=== PATIENT | female | born 1970 | race Caucasian/White ===

== ENCOUNTER 2022-12-24 23:03 | Emergency (ER) | payer BC, SELFPAY ==
[2022-12-24 23:12] VITALS: BP 142/78; PULSE 74; RESP 16; TEMP 36.1; O2SAT 96
[2022-12-24] MEDS: Amoxicillin 500 MG CAP PO (23:21)
--- NOTE | 2022-12-24 23:21 | W.ED.GENAD ---
Discharge Plan Disposition Patient Disposition: Home Condition: Good Discharge Details Clinical Impression: Dental caries Primary Care Provider: Alicia,Local ED Provider: Viet Singh Home Meds and New Rx's Prescriptions: New amoxicillin 500 mg tablet 500 mg PO TID 7 Days Qty: 21 0RF Discharge Instructions Instructions: Dental Caries (ED) Additional Instructions: Please take 800 mg of ibuprofen every 6 hours and 1000 mg of Tylenol every 6 hours to help with the inflammation and pain. These are the maximum doses. Please take the antibiotic as directed to help with the infection in your tooth. Please use the dental list that we have provided to contact the dentist for prompt follow-up and evaluation for tooth removal. If you notice any worsening of your symptoms, or any new symptoms such as difficulty swallowing, difficulty breathing, vomiting, diarrhea, fever, chills, shortness of breath, chest pain, numbness, weakness, or fainting , please return immediately to the emergency department for reevaluation. Please follow up with your primary care provider as soon as possible for reassessment and reevaluation. As always, it was a pleasure participating in your medical care today. Medical Decision Making 52-year-old female with a past medical history of dental caries presents today for evaluation of right lower tooth dental pain. Patient states that symptoms began last 24 to 48 hours. She has had pain like this before which required antibiotics secondary to root infection. She denies fever chills or swelling. No difficulty swallowing. No other complaints at this time. Exam demonstrates well-appearing female, mild dental caries. No evidence of periapical abscess. No signs of airway compromise whatsoever. No swelling. Did offer dental block but patient has refused. We will give amoxicillin, and recommend continue Tylenol Motrin outpatient. Recommend close follow-up with dentist. Discussed red flags for which to return. I have extensively reviewed the treatment plan and discharge instructions with the patient. I have addressed all patient concerns at this time. The patient was made aware of what symptoms to monitor for that would warrant a return to the emergency department. Discussed the plan with the patient, they demonstrate verbal understanding and agreement with our assessment and plan at this time. The documentation in this chart was dictated using [employer] dictation software. Please excuse any dictation errors. HPI General Date/Time Provider Initiated Documentation: 12/24/22 23:07. HPI Narrative: 52-year-old female with a past medical history of dental caries presents today for evaluation of right lower tooth dental pain. Patient states that symptoms began last 24 to 48 hours. She has had pain like this before which required antibiotics secondary to root infection. She denies fever chills or swelling. No difficulty swallowing. No other complaints at this time. Related Data Home Medications Medication Instructions Recorded Confirmed amoxicillin 500 mg tablet 500 mg PO TID 7 days #21 tabs 12/24/22 Previous Rx's Medication Instructions Recorded amoxicillin 500 mg tablet 500 mg PO TID 7 days #21 tabs 12/24/22 General Stated Complaint: DentalOral CHAGO: 4 Review of Systems All systems reviewed & are unremarkable except as noted in HPI and below PFSH All Active Problems Dental caries (Acute) Social History Smoking/Tobacco Use Status: Never Smoking risk assessment performed?: Yes Substance use type: does not use Do you feel safe at home: Yes Do you feel safe in your relationship?: Yes Exam Narrative Exam Narrative: 1.Const: Well-nourished, Well-developed, appearing stated age 2.Eyes: PERRL, no conjunctival injection, and symmetrical lids. 3.ENT: Atraumatic external nose and ears. Moist MM. Neck: Symmetric, trachea midline, No thyromegaly. Occasional dental caries throughout. No evidence of periapical abscess or swelling. No evidence of Ludewig's angina. 4.CVS: +S1/S2, No murmurs or gallops. Peripheral pulses 2+ and equal in all extremities. Brisk capillary refill in all extremities. 5.RESP: Unlabored respiratory effort. Clear to auscultation bilaterally. No wheezes rales or rhonchi 6.GI: Soft, Nontender/Nondistended, No hepatosplenomegaly. No guarding or rebound. 7.MSK: Normocephalic/Atraumatic, Extremities w/o deformity or ttp No cyanosis or clubbing, Normal movement of all extremities 8.Skin: Warm, Dry. No rashes or lesions. 9.Neuro: centerless grinder II-XII grossly intact. Sensation grossly intact, no focal neurologic deficits. 10.Psych: (AAO) x3. Appropriate mood and affect Course Vital Signs Vital signs: Vital Signs Temperature 36.1 C L 12/24/22 23:12 Pulse 74 12/24/22 23:12 Respiratory Rate 16 12/24/22 23:12 Blood Pressure 142/78 H 12/24/22 23:12 Pulse Oximetry 96 12/24/22 23:12 Temperature 36.1 C L 12/24/22 23:12 Temperature Source Tympanic 12/24/22 23:12 Pulse 74 12/24/22 23:12 Respiratory Rate 16 12/24/22 23:12 Respiratory Effort Normal, Non-Labored 12/24/22 23:14 Blood Pressure 142/78 H 12/24/22 23:12 Blood Pressure Position Sitting 12/24/22 23:12 Pulse Oximetry 96 12/24/22 23:12 Oxygen Delivery Method Room Air 12/24/22 23:12 Oxygen Flow Rate 0 12/24/22 23:12 Pain Level 5 12/24/22 23:12
== END 2022-12-24 23:34 | disposition home or self-care (01) ==
PROVIDERS: Emergency Provider Student in an Organized Health Care Education/Training Program
DX: K02.9 Dental caries, unspecified (principal)
CPT/HCPCS: 99283

== ENCOUNTER 2023-05-05 15:32 | Outpatient (REF) | payer BC, SELFPAY ==
[2023-05-05 21:14] LABS: Abs Immature Grans 0.02 10^3/uL (0.0-0.06); Absolute Basophil Count 0.01 10^3/uL (0.0-0.2); Absolute Eosinophil Count 0.13 10^3/uL (0.0-0.7); Absolute Lymphocyte Count 2.76 10^3/uL (1.2-3.4); Absolute Monocyte Count 0.57 10^3/uL (0.1-0.8); Absolute Neutrophil Count 3.91 10^3/uL (1.2-6.7); Basophils % 0.1; Eosinophils % 1.8; HCT 41.4 % (36.0-46.0); HGB 13.5 g/dL (11.2-15.7); Immature Grans % 0.3; Lymphocytes % 37.3; MCH 28.7 pg (27.0-33.0); MCHC 32.6 % (32.0-36.0); MCV 88 fL (80-95); MPV 11.2 fL (8.0-11.0); Monocytes % 7.7; Neutrophils % 52.8; Platelet Count 290 10^3/uL (130-400); RBC 4.71 10^6/uL (3.93-5.22); RDW 12.6 % (11.7-14.6); RDW-SD 40.9 fL
[2023-05-05 21:54] LABS: C-Reactive Protein 0.22 mg/dL (0.0-0.3)
[2023-05-07 12:49] LABS: Lyme Ab w Rflx to Lyme Confirm Equivocal (Negative)
[2023-05-07 14:11] LABS: Lyme IgG Ab Negative (Negative); Lyme IgM Ab Positive (Negative)
== END 2023-05-05 15:33 | disposition home or self-care (01) ==
LOC: LBN 15:32
PROVIDERS: Visit Provider Nurse Practitioner Family
DX: M25.462 Effusion, left knee (principal)
CPT/HCPCS: 86617; 85025; 86140; 86618

== ENCOUNTER 2023-05-05 15:39 | Outpatient (CLI) | payer BC, SELFPAY ==
--- NOTE | 2023-05-05 | DI.RAD_ITS ---
Exam(s) XR KNEE LT 3V AP,LAT,SULAIMAN EXAM: XR KNEE LT 3V AP,LAT,SULAIMAN CLINICAL HISTORY: KNEE SWELLING, M25.469. TECHNIQUE: 2D digital imaging was performed. Three views. COMPARISON: No exams were available for comparison FINDINGS: BONES: No acute fracture is present. No bony destructive lesion is seen. JOINTS: The knee is normally aligned. No joint effusion is seen. SOFT TISSUE: Normal. IMPRESSION: Normal radiographs of the left knee. DATA REPOSITORY: RADIATION DOSE DELIVERED:
== END 2023-05-05 15:59 ==
LOC: DI 15:41
PROVIDERS: Visit Provider Nurse Practitioner Family
DX: M25.462 Effusion, left knee (principal)
CPT/HCPCS: 73562